=== PATIENT | female | born 1985 | race African-American/Black ===

== ENCOUNTER 2017-10-01 16:05 | Emergency (ER) | payer MEDICAID, SELFPAY ==
[2017-10-01 16:06] VITALS: BP 131/81; PULSE 87; RESP 15; TEMP 36.2; O2SAT 96; BMI 24.0
--- NOTE | 2017-10-01 16:13 | ED.RN ---
RN CALLED FOR EKG AT 1611.
--- NOTE | 2017-10-01 16:20 | EKG12_ITS ---
Test Reason : CP/PALPS Blood Pressure : / mmHG Vent. Rate : 079 BPM Atrial Rate : 079 BPM P-R Int : 128 ms QRS Dur : 090 ms QT Int : 374 ms P-R-T Axes : 054 021 030 degrees QTc Int : 428 ms Normal sinus rhythm Normal ECG Confirmed by SHAKIR TORRES ([id number]), health editor BRIONNA ERVIN ([id number]) on 10/06/2017 10:05:47 AM Referred By: CHELY Confirmed By:SHAKIR TORRES
--- NOTE | 2017-10-01 16:20 | RAD_ITS ---
STUDY: X-RAY CHEST REASON FOR EXAM: Female, 32 years old. Chest pain TECHNIQUE: Single AP portable view of the chest. COMPARISON: None. FINDINGS: The lungs are clear and expanded. There is no demonstrated pleural abnormality. Normal size heart. Normal mediastinum and natty. Normal visualized pulmonary arteries. Normal visualized aortic arch and descending thoracic aorta. Normal visualized thoracic spine. Normal visualized ribs, clavicles, and shoulders. There is no demonstrated abnormality of the visualized soft tissue structures of the upper abdomen. RAD/Chest 1 View (Portable) IMPRESSION: Normal x-ray examination of the chest. Electronically Signed: Shahzad Peace DO at 16:51 EST Tel , Service support ,
[2017-10-01 17:01] VITALS: O2SAT 100
[2017-10-01 17:03] VITALS: BP 138/99; PULSE 88; RESP 23; O2SAT 100
[2017-10-01 17:10] LABS: Absolute Lymphocyte Count 3.53 X10^3/ul (0.83-4.51); Absolute Neutrophil Count 4.4 X10^3/uL (2.0-7.7); Basophil# 0.03 X10^3/uL; Basophil% 0.4 % (0-1); Eosinophil# 0.17 X10^3/uL; Hematocrit 38.1 % (37-47); Hemoglobin 12.5 g/dl (12.0-15.0); Lymphocyte # 3.53 X10^3/ul (4.0); Lymphocyte % 41.3 % (19-41); Mean Corp Hgb Conc 32.8 g/gl (32-36); Mean Corpuscular Volume 85.4 fL (81-99); Mean Platelet Vol. 11.2 fl (6.2-12.0); Monocyte% 4.7 % (0-10); Neutrophil % 51.5 % (47-70); Platelet Count 230 K/mm3 (150-450); RBC Distribution Width CV 13.2 % (11.6-14.6); RBC Distribution Width SD 40.9 fl (35.1-43.9); Red Blood Count 4.46 M/mm3 (4.2-5.4); White Blood Count 8.5 K/mm3 (4.4-11.0)
[2017-10-01 17:13] LABS: POSITIVE COUNT NO; POSITIVE DIFFERENTIAL NO; POSITIVE MORPHOLOGY NO
[2017-10-01 17:24] LABS: Anion Gap 7 (5-15); BUN 12 mg/dL (7-18); Calcium,Total 8.9 mg/dL (8.5-10.1); Chloride 109 mmol/L (98-107); Creatinine, Serum 0.75 mg/dL (0.55-1.02); EST Glomerular Filtration Rate 94 mL/min (>60); Est Glom Filt Rate - Afr Amer 114 mL/min (>60); Estimated Creatinine Clearance 103.75 ml/min; Glucose 87 mg/dL (70-110); Potassium 3.3 mmol/L (3.5-5.1); Sodium Level 144 mmol/L (136-145)
[2017-10-01 18:29] VITALS: BP 116/87; PULSE 73; RESP 18; O2SAT 99
--- NOTE | 2017-10-01 19:09 | ED.VISSUMM ---
- ER Visit Summary Date of Service: 10/01/17 Chief Complaint: Sent to ER by PCP to evaluate chest pain. History of Present Illness: The patient is a 32 F who recently had upper respiratory infection presents with heartburn and pressure mid chest for approximately 1 week. She denies fever, chills night sweats. She does report rhinorrhea, sore throat and nonproductive cough. She denies history of PE or DVT or any risk factors other than hormonal therapy for control. She denies any leg pain, swelling, discoloration or any symptoms. She denies rash. She has no similar past medical history. Review of systems otherwise negative. Physical Examination: Vital signs are remarkable respiratory 23 per triage. On my exam she had a respirator 18. Head is atraumatic normocephalic. Pupils are equal round reactive. Extraocular muscles are intact. TMs are pearly white with landmarks noted. Nares patent with no drainage. Posterior pharynx without erythema or exudate. Uvula is midline. There is no dysphonia or dysphasia. Trachea is midline. There is no stridor with auscultation of the neck. There may be slight erythema of the posterior pharynx. Heart is regular without murmur, gallop or rub. S1 and S2 are normal. Lungs are clear to auscultation with good movement of air bilaterally. There is no asymmetry, swelling, discoloration, leg vein distention, palpable cords or tenderness along the distribution of the deep venous system. Test Results: CBC, BMP and troponin were obtained and are unremarkable. Portable chest x-ray is ordered per nurse protocol and interpreted by me as negative. EKG sinus rhythm rate 79 and normal. Emergency Department Course and Treatment: Protocol was initiated because of acuity and delay in care. Treatment Plan: Appropriate home-going instructions Disposition: Discharged to follow-up with Dr. Gallegos Impression: 1. Midsternal chest pain unknown etiology 2. Heartburn This note was generated with [employer] dictation software. It may contain incorrect words, spelling, and punctuation that were not noted in review of the chart prior to signing ED Disposition - Plan for ED Patient: Disposition: Home or Assisted Living Chief Complaint: Chest Pain Instructions: ED Chest Pain NonCardiac, ED GERD Prescriptions: Famotidine [Pepcid] 40 mg PO DAILY #30 tab Referrals: Romain Gallegos DO [Primary Care Provider] - 3-5 Days if not improving
[2017-10-01 19:19] VITALS: BP 112/86; PULSE 76; RESP 22; O2SAT 96
[2017-10-01] MEDS: Famotidine 20 MG Tablet 40 MG PO (19:23)
== END 2017-10-01 19:24 | disposition home or self-care (01) ==
PROVIDERS: Emergency Provider Emergency Medicine; Family Provider Student in an Organized Health Care Education/Training Program; PCP Student in an Organized Health Care Education/Training Program
DX: R07.9 Chest pain, unspecified (principal); R12 Heartburn; R05 Cough; J02.9 Acute pharyngitis, unspecified; R06.00 Dyspnea, unspecified; Z72.0 Tobacco use; J34.89 Other specified disorders of nose and nasal sinuses
CPT/HCPCS: 71045; 80048; 84484; 85025; 93005; 99285; A4216